=== PATIENT | female | born 1935 | race Caucasian/White ===

== ENCOUNTER 2018-08-24 11:51 | Inpatient (IN) | payer MEDICARE, OTHER ==
[~2018-08-24] VITALS: Ht 165.1 cm; Wt 82.2 kg
[~2018-08-24 11:51] MED LIST: ACET-2119 PO; ALBU18HF2 INH; ATOR10TA70 PO; BACL10TA PO; CETI10TA15 PO; DOCU100C41 PO; FLUT16SP26 BOTHNARES; IPRA3AMP31 NEB; LEVO75TA7 PO; LORA0.5T PO; METO-395 PO; MONT10TA24 PO; MULT-342 PO; POLY119P2 PO; RANI150C4 PO; VENL-191 PO; [UNRECOGNIZED DRUG - CODE] PO
[2018-08-24] MEDS ORDERED: methylPREDNISolone sod succ 125mg/2ml vial IV ONE (12:30)
[2018-08-24] MEDS ORDERED: ipratropium/albuterol 3ml nebule NEB ONE ×2 (12:30→13:40)
[2018-08-24 12:58] LABS: BASOPHILS # (AUTO) 0.1 X10'3 (0-0.2); BASOPHILS % (AUTO) 0.8 % (0-1); EOSINOPHILS # (AUTO) 0.9 X10'3 (0-0.9); EOSINOPHILS % (AUTO) 8.2 % (0-6); HEMATOCRIT 41.5 % (35.0-45.0); HEMOGLOBIN 13.8 g/dl (12.0-16.0); LYMPHOCYTES # (AUTO) 2.3 X10'3 (1.1-4.8); LYMPHOCYTES % (AUTO) 21.4 % (21-51); MEAN CORPUSCULAR HEMOGLOBIN 29.1 PG (27.0-31.0); MEAN CORPUSCULAR HGB CONC 33.2 g/dL (33.0-36.5); MEAN CORPUSCULAR VOLUME 87.7 FL (78-98); MONOCYTES # (AUTO) 1.3 X10'3 (0-0.9); MONOCYTES % (AUTO) 11.9 % (2-12); NEUTROPHILS # (AUTO) 6.3 X10'3 (1.8-7.7); NEUTROPHILS % (AUTO) 57.7 % (42-75); PLATELET COUNT 246 X10'3 (140-440); RED BLOOD COUNT 4.73 X10'6 (4.20-5.60); RED CELL DISTRIBUTION WIDTH 14.6 % (11.5-14.5); WHITE BLOOD COUNT 10.9 X10'3 (4.5-11.0)
[2018-08-24 13:17] LABS: ALANINE AMINOTRANSFERASE 31 U/L (12-78); ALBUMIN 3.6 G/DL (3.4-5.0); ALKALINE PHOSPHATASE 84 IU/L (46-116); ANION GAP 8 (8-16); ASPARTATE AMINO TRANSFERASE 17 U/L (10-37); BILIRUBIN,TOTAL 0.6 MG/DL (0.1-1.0); BLOOD UREA NITROGEN 19 MG/DL (7-18); BUN/CREATININE RATIO 21.8 (6.6-38.0); CALCIUM 9.2 MG/DL (8.5-10.1); CHLORIDE 107 MMOL/L (99-107); CREATININE 0.87 MG/DL (0.40-0.90); GLUCOSE 101 MG/DL (70-104); POTASSIUM 4.2 MMOL/L (3.5-5.1); SODIUM 139 MMOL/L (135-145); TOTAL CARBON DIOXIDE 23.8 MMOL/L (24-32); TOTAL PROTEIN 7.1 G/DL (6.4-8.2); eGFR 62 ML/MIN
[2018-08-24 13:20] LABS: ABG BASE EXCESS -3.5 mmol/L (-2.0-3.0); ABG HCO3 18.5 mmol/L (22.0-26.0); ABG OXYGEN SATURATION 98.2 % (95-98); ABG PCO2 (T) 26.3 mmHg (32.0-45.0); ABG PH (T) 7.466 (7.350-7.450); ABG PO2 (T) 120.2 mmHg (83-108); FCOHb 0.5 % (0.5-1.5); FLOW 2 L/min; FMetHb 0.1 % (0.3-1.12); FO2Hb 97.6 % (94-100); TOTAL HEMOGLOBIN 14.5 G/dl (12.0-16.0)
[2018-08-24 13:21] LABS: MAGNESIUM 1.2 MG/DL (1.5-2.4)
[2018-08-24 13:23] LABS: PARTIAL THROMBOPLASTIN TIME 26 SECONDS (22-32)
--- NOTE | 2018-08-24 14:42 | NUR ---
ATTEMPTED TO AMBULATE PT WITH FWW AND PORTABLE 02 TO BATHROOM, PT C/O FEELING DIZZY AND SOB. UNABLE TO MAKE IT TO BATHROOM, NOTIFIED . PT WAS PLACED ON BED NARAYANAN BY MANAGEMENT LEAD TO COLLECT UA, PT UNABLE TO VOID AT THIS TIME.
[2018-08-24 16:15] LABS: CLARITY,URINE CLEAR (Clear); COLOR,URINE YELLOW (Yellow); GLUCOSE, URINE NEGATIVE (Neg); KETONES,URINE NEGATIVE (Neg); LEUKOCYTE ESTERASE ,URINE NEGATIVE (Neg); NITRITES, URINE NEGATIVE (Neg); OCCULT BLOOD,URINE NEGATIVE (Neg); PH,URINE 5.5 (4.8-8.0); PROTEIN,URINE NEGATIVE (Neg); UROBILINOGEN,URINE 0.2 E.U/dL (0.2-1.0)
[2018-08-24 16:16] LABS: UA COLLECTION TYPE STRAIGHT CATH
[2018-08-24] MEDS ORDERED: FLUT12AE4 PO (17:18)
[2018-08-24] MEDS ORDERED: GUAI600T45 PO (17:18)
[2018-08-24] MEDS ORDERED: CITA10TA9 PO (17:18)
[2018-08-24] MEDS ORDERED: CHOL2000 PO (17:18)
[2018-08-24] MEDS ORDERED: TRIAMCINOLONE 0.1% TOP (17:18)
[2018-08-24] MEDS ORDERED: SIME125C88 PO (17:18)
[2018-08-24] MEDS ORDERED: LOPE2CAP PO (17:18)
[2018-08-24] MEDS ORDERED: TIOT18CA3 PO (17:18)
[2018-08-24] MEDS ORDERED: acetaminophen 325mg tablet PO PRN ×3 (17:50→17:55)
[2018-08-24] MEDS ORDERED: cetirizine 10mg tablet PO PRN (17:50)
[2018-08-24] MEDS ORDERED: baclofen 10mg tablet PO PRN (17:50)
[2018-08-24] MEDS ORDERED: TRIAMCINOLONE 0.1% TOP PRN (17:50)
[2018-08-24] MEDS ORDERED: loperamide 2mg capsule PO PRN (17:50)
[2018-08-24] MEDS ORDERED: LORazepam 0.5 MG tablet PO PRN (17:50)
[2018-08-24] MEDS ORDERED: magnesium 2GM in 50ml NS 50 ML IV PRN (17:55)
[2018-08-24] MEDS ORDERED: acetaminophen 650mg rectal suppository RC PRN (17:55)
[2018-08-24] MEDS: K and/or MAG REPLACEMENT MC SCH (17:55)
[2018-08-24] MEDS ORDERED: magnesium 4gm in 100ml NS 100 ML IV PRN (17:55)
[2018-08-24] MEDS ORDERED: morphine 2 MG/ML inj. syringe IV PRN ×2 (17:55)
[2018-08-24] MEDS ORDERED: magnesium hydroxide 30ml (MOM) UD suspension PO PRN (17:55)
[2018-08-24] MEDS ORDERED: diphenhydrAMINE 25mg capsule PO PRN (17:55)
[2018-08-24] MEDS ORDERED: potassium CL 10mEq/100ml bag 100 ML IV PRN (17:55)
[2018-08-24] MEDS ORDERED: potassium Cl 20 mEq SR tablet PO PRN ×2 (17:55)
[2018-08-24] MEDS ORDERED: HYDROcodone/acetaminophen 5mg/325mg tablet PO PRN (17:55)
[2018-08-24] MEDS ORDERED: ondansetron/PF 4mg/2ml inj IV PRN (17:55)
[2018-08-24] MEDS ORDERED: mag hydrox/Alum hydrox/simeth 30ml oral suspension PO PRN (17:55)
[2018-08-24] MEDS ORDERED: potassium Cl 40MEQ/NS 500ml 500 ML IV PRN (17:55)
[2018-08-24] MEDS ORDERED: triamcinolone acet 0.1% cream 15gm TP PRN (18:00)
[2018-08-24 18:46] LABS: HEMOGLOBIN A1C 6.5 % (4.5-6.2)
[2018-08-24] MEDS ORDERED: ipratropium/albuterol 3ml nebule NEB SCH (19:00)
[2018-08-24] MEDS ORDERED: ipratropium/albuterol 3ml nebule NEB PRN (19:00)
[2018-08-24] MEDS: magnesium Cl slow-release 64mg tablet PO PRN (19:26)
[2018-08-24] MEDS: normal saline 1000ml 1,000 ML IV SCH (19:30)
[2018-08-24] MEDS: famotidine 20mg tablet PO SCH (19:31)
[2018-08-24] MEDS: methylPREDNISolone sod succ 125mg/2ml vial IV SCH (19:31)
[2018-08-24] MEDS: heparin, porcine 5000 units/ml vial SQ SCH (19:42)
[2018-08-24] MEDS ORDERED: non-formulary drug (Ranitidine HCl 2 CAP) PO SCH (20:00)
[2018-08-24] MEDS ORDERED: SALMETEROL PO SCH (20:00)
[2018-08-24] MEDS ORDERED: FLUTICASONE PO SCH (20:00)
--- NOTE | 2018-08-24 20:00 | NUR ---
Patient in room . I have received report from Jan and had the opportunity to ask questions and assume patient care.
[2018-08-24 20:15] VITALS: BP 135/90
--- NOTE | 2018-08-24 20:15 | NUR ---
Received patient from ED. Patient was stable, but anxious after transferring to the bed. Patient is on O2, tele, and arrived with daughter.
[2018-08-24] MEDS: albuterol 2.5 MG/3 ML nebule NEB SCH (20:19)
[2018-08-24] MEDS: ipratropium 0.5 MG/2.5ML nebule IH SCH (20:19)
[2018-08-24] MEDS: budesonide 0.5mg/2ml UD nebule IH SCH (20:19)
[2018-08-24] MEDS: montelukast 10mg tablet PO SCH (21:54)
[2018-08-24] MEDS: SIMETHICONE 125 MG CAPSULE PO SCH (21:54)
[2018-08-24] MEDS: atorvastatin 10mg tablet PO SCH (21:54)
[2018-08-24] MEDS: metoprolol succinate 25mg (24-HOUR) SR. Tablet PO SCH (21:55)
[2018-08-24 22:00] VITALS: BP 157/67
[2018-08-24 22:04] LABS: CLARITY,URINE CLEAR (Clear); COLOR,URINE YELLOW (Yellow); GLUCOSE, URINE NEGATIVE (Neg); KETONES,URINE TRACE mg/dl (Neg); LEUKOCYTE ESTERASE ,URINE NEGATIVE (Neg); NITRITES, URINE NEGATIVE (Neg); OCCULT BLOOD,URINE TRACE-INTACT (Neg); PH,URINE 5.5 (4.8-8.0); PROTEIN,URINE NEGATIVE (Neg); UROBILINOGEN,URINE 0.2 E.U/dL (0.2-1.0)
[2018-08-24 22:05] LABS: UA COLLECTION TYPE CLN CATCH MIDSTREAM
[2018-08-24 22:20] LABS: BACTERIA,URINE FEW /HPF (Neg); MUCUS STRANDS MODERATE /LPF (Neg); RBC,URINE 0-2 /HPF (0-2); SQUAMOUS EPITHELIAL CELL,UR FEW /LPF (FEW); WBC,URINE 0-4 /HPF (0-4)
[2018-08-24 22:21] LABS: HYALINE CASTS 0-3 /LPF (NEGATIVE)
[2018-08-25] VITALS (8 sets, daily range): BP systolic 109–140; BP diastolic 51–71
[2018-08-25 01:12] LABS: ALANINE AMINOTRANSFERASE 29 U/L (12-78); ALBUMIN 3.3 G/DL (3.4-5.0); ALKALINE PHOSPHATASE 74 IU/L (46-116); ANION GAP 10 (8-16); ASPARTATE AMINO TRANSFERASE 14 U/L (10-37); BILIRUBIN,TOTAL 0.3 MG/DL (0.1-1.0); BLOOD UREA NITROGEN 20 MG/DL (7-18); CALCIUM 8.6 MG/DL (8.5-10.1); CHLORIDE 104 MMOL/L (99-107); CREATININE 1.11 MG/DL (0.40-0.90); GLUCOSE 253 MG/DL (70-104); SODIUM 135 MMOL/L (135-145); TOTAL PROTEIN 6.6 G/DL (6.4-8.2); eGFR 47 ML/MIN
[2018-08-25 01:15] LABS: CHOL/HDL RATIO 3.5 (0.00-4.99); CHOLESTEROL 180 MG/DL (0-200); HDL CHOLESTEROL 52 MG/DL (35-60); LDL CHOLESTEROL 111 MG/DL (50-100); MAGNESIUM 1.1 MG/DL (1.5-2.4); PHOSPHORUS 3.2 MG/DL (2.3-4.5); TRIGLYCERIDES 62 MG/DL (20-135)
[2018-08-25] MEDS: methylPREDNISolone sod succ 125mg/2ml vial IV SCH ×4 (01:15→19:53)
[2018-08-25] MEDS: ipratropium 0.5 MG/2.5ML nebule IH SCH ×4 (02:34→20:32)
--- NOTE | 2018-08-25 06:18 | NUR ---
Problems reprioritized. Patient report given, questions answered & plan of care reviewed with Gabi.
--- NOTE | 2018-08-25 06:30 | NUR ---
Patient in room PCU 3024. I have received report from Sang VENTURA and had the opportunity to ask questions and assume patient care.
[2018-08-25 07:10] LABS: BASOPHILS % (AUTO) 0.1 % (0-1); EOSINOPHILS % (AUTO) 0 % (0-6); HEMOGLOBIN 12.5 g/dl (12.0-16.0); LYMPHOCYTES # (AUTO) 0.6 X10'3 (1.1-4.8); LYMPHOCYTES % (AUTO) 8.9 % (21-51); MEAN CORPUSCULAR HEMOGLOBIN 29.4 PG (27.0-31.0); NEUTROPHILS # (AUTO) 6.1 X10'3 (1.8-7.7)
[2018-08-25 07:12] LABS: HEMATOCRIT 37.9 % (35.0-45.0); MEAN CORPUSCULAR HGB CONC 33.1 g/dL (33.0-36.5); MEAN CORPUSCULAR VOLUME 88.8 FL (78-98); MEAN PLATELET VOLUME 10.4 FL (7.4-10.4); MONOCYTES # (AUTO) 0.1 X10'3 (0-0.9); MONOCYTES % (AUTO) 1.9 % (2-12); NEUTROPHILS % (AUTO) 89.1 % (42-75); PLATELET COUNT 204 X10'3 (140-440); RED BLOOD COUNT 4.26 X10'6 (4.20-5.60); RED CELL DISTRIBUTION WIDTH 14.2 % (11.5-14.5); WHITE BLOOD COUNT 6.9 X10'3 (4.5-11.0)
[2018-08-25 07:58] LABS: LARGE PLATELETS FEW; PLATELET ESTIMATE NORMAL
[2018-08-25] MEDS: albuterol 2.5 MG/3 ML nebule NEB SCH ×4 (08:00→20:31)
[2018-08-25] MEDS ORDERED: MULTIVITAMINS PO SCH (08:00)
[2018-08-25] MEDS: K and/or MAG REPLACEMENT MC SCH (08:00)
[2018-08-25] MEDS ORDERED: non-formulary drug (Cholecalciferol (Vitamin D3) (Vitamin D) 1 CAP) PO SCH (08:00)
[2018-08-25] MEDS ORDERED: non-formulary drug (Tiotropium Bromide (Spiriva) 1 PUFF) PO SCH (08:00)
[2018-08-25] MEDS: budesonide 0.5mg/2ml UD nebule IH SCH ×2 (08:00→20:31)
--- NOTE | 2018-08-25 08:23 | NUR ---
Page to Echo: [id number] pt Wang has an active order for Echo. Thank you.
[2018-08-25] MEDS ORDERED: magnesium Cl slow-release 64mg tablet PO PRN (08:55)
[2018-08-25] MEDS: SIMETHICONE 125 MG CAPSULE PO SCH ×2 (09:10→19:53)
[2018-08-25] MEDS: famotidine 20mg tablet PO SCH ×2 (09:11→19:53)
[2018-08-25] MEDS: guaiFENesin ER 600mg tablet PO SCH (09:12)
[2018-08-25] MEDS: CITALOpram 10mg tablet PO SCH (09:13)
[2018-08-25] MEDS: levoTHYROXINE 75mcg tablet PO SCH (09:14)
[2018-08-25] MEDS: heparin, porcine 5000 units/ml vial SQ SCH ×2 (09:14→19:54)
[2018-08-25] MEDS: vitamin D (cholecalciferol) 1,000 unit tablet PO SCH (09:15)
[2018-08-25] MEDS: multivitamins, therapeutics tablet PO SCH (09:23)
--- NOTE | 2018-08-25 10:51 | NUR ---
Page: [id number] jemma Piña has active order for VL Carotid. Thank you.
[2018-08-25] MEDS: magnesium Cl slow-release 64mg tablet PO PRN ×2 (11:06→19:59)
[2018-08-25] MEDS: normal saline 1000ml 1,000 ML IV SCH (13:52)
--- NOTE | 2018-08-25 15:26 | NUR ---
PAGER ID: [phone] MESSAGE: [id number] pt Wang is eating and drinking okay. Do you still want the NS @ 50 ml/hr? Thank you - Gabi [phone]
--- NOTE | 2018-08-25 18:28 | NUR ---
Orientee documentation: I have reviewed and agree with interventions, assessments performed and documented by AUDREY Jang. For this medication-pass time frame, medications were reviewed, dispensed, administered and documented per hospital policy by AUDREY Jang.
--- NOTE | 2018-08-25 18:29 | NUR ---
Problems reprioritized. Patient report given, questions answered & plan of care reviewed with AUDREY Huang.
--- NOTE | 2018-08-25 18:55 | NUR ---
Patient in room PCU 3024. I have received report from Gabi VENTURA and had the opportunity to ask questions and assume patient care.
[2018-08-25] MEDS: hydrocortisone 1% cream 28gm TP SCH (19:55)
[2018-08-25] MEDS: HYDROcodone/acetaminophen 10/325mg tab PO PRN (19:57)
[2018-08-25] MEDS: metoprolol succinate 25mg (24-HOUR) SR. Tablet PO SCH (22:21)
[2018-08-25] MEDS: montelukast 10mg tablet PO SCH (22:22)
[2018-08-25] MEDS: atorvastatin 10mg tablet PO SCH (22:22)
[2018-08-26 02:00] VITALS: BP 131/61
[2018-08-26] MEDS: methylPREDNISolone sod succ 125mg/2ml vial IV SCH ×2 (02:11→07:45)
[2018-08-26] MEDS: HYDROcodone/acetaminophen 10/325mg tab PO PRN (02:12)
[2018-08-26] MEDS: ipratropium 0.5 MG/2.5ML nebule IH SCH ×2 (03:00→08:19)
[2018-08-26 05:29] LABS: BASOPHILS % (AUTO) 0 % (0-1); EOSINOPHILS % (AUTO) 0 % (0-6); HEMATOCRIT 38.3 % (35.0-45.0); HEMOGLOBIN 13.1 g/dl (12.0-16.0); LYMPHOCYTES # (AUTO) 0.7 X10'3 (1.1-4.8); MEAN CORPUSCULAR HEMOGLOBIN 30.1 PG (27.0-31.0); MEAN CORPUSCULAR HGB CONC 34.2 g/dL (33.0-36.5); MEAN CORPUSCULAR VOLUME 88.2 FL (78-98); MEAN PLATELET VOLUME 10.5 FL (7.4-10.4); MONOCYTES # (AUTO) 0.3 X10'3 (0-0.9); MONOCYTES % (AUTO) 2.1 % (2-12); NEUTROPHILS # (AUTO) 13.9 X10'3 (1.8-7.7); NEUTROPHILS % (AUTO) 92.9 % (42-75); PLATELET COUNT 208 X10'3 (140-440); RED BLOOD COUNT 4.34 X10'6 (4.20-5.60); RED CELL DISTRIBUTION WIDTH 14.7 % (11.5-14.5)
[2018-08-26 06:02] LABS: ALANINE AMINOTRANSFERASE 26 U/L (12-78); ALBUMIN 3.5 G/DL (3.4-5.0); ALKALINE PHOSPHATASE 82 IU/L (46-116); ANION GAP 10 (8-16); ASPARTATE AMINO TRANSFERASE 13 U/L (10-37); BILIRUBIN,TOTAL 0.3 MG/DL (0.1-1.0); BLOOD UREA NITROGEN 31 MG/DL (7-18); BUN/CREATININE RATIO 32.6 (6.6-38.0); CHLORIDE 105 MMOL/L (99-107); CREATININE 0.95 MG/DL (0.40-0.90); GLUCOSE 213 MG/DL (70-104); MAGNESIUM 1.7 MG/DL (1.5-2.4); POTASSIUM 4.4 MMOL/L (3.5-5.1); SODIUM 137 MMOL/L (135-145); TOTAL CARBON DIOXIDE 21.6 MMOL/L (24-32); eGFR 56 ML/MIN
--- NOTE | 2018-08-26 06:29 | NUR ---
Patient in room PCU 3024. I have received report from Karina VENTURA and had the opportunity to ask questions and assume patient care.
--- NOTE | 2018-08-26 06:47 | NUR ---
Problems reprioritized. Patient report given, questions answered & plan of care reviewed with Leticia VENTURA.
[2018-08-26 06:51] VITALS: BP 106/46
[2018-08-26] MEDS: multivitamins, therapeutics tablet PO SCH (07:44)
[2018-08-26] MEDS: guaiFENesin ER 600mg tablet PO SCH (07:44)
[2018-08-26] MEDS: famotidine 20mg tablet PO SCH (07:44)
[2018-08-26] MEDS: CITALOpram 10mg tablet PO SCH (07:44)
[2018-08-26] MEDS: levoTHYROXINE 75mcg tablet PO SCH (07:44)
[2018-08-26] MEDS: vitamin D (cholecalciferol) 1,000 unit tablet PO SCH (07:45)
[2018-08-26] MEDS: heparin, porcine 5000 units/ml vial SQ SCH (07:45)
[2018-08-26] MEDS: K and/or MAG REPLACEMENT MC SCH (07:46)
[2018-08-26] MEDS: SIMETHICONE 125 MG CAPSULE PO SCH (07:49)
[2018-08-26] MEDS: hydrocortisone 1% cream 28gm TP SCH (07:50)
--- NOTE | 2018-08-26 08:08 | NUR ---
PAGED RT, "PLEASE COME BRING BREATHING TX RIGHT AWAY TO ROOM 3024 B, PATIENT IS WHEEZING AND HAVING A DIFFICULT TIME BREATHING! THANK YOU."
[2018-08-26] MEDS: albuterol 2.5 MG/3 ML nebule NEB SCH (08:18)
[2018-08-26] MEDS: budesonide 0.5mg/2ml UD nebule IH SCH (08:18)
--- NOTE | 2018-08-26 08:19 | NUR ---
RT ARRIVED AT THIS TIME TO PERFORM RT TX.
[2018-08-26] MEDS ORDERED: PRED10TA23 PO (08:44)
[2018-08-26] MEDS ORDERED: AZIT500T PO (08:46)
[2018-08-26 09:35] VITALS: BP_SYST 113; BP_SYST 118; BP_DIAS 81; BP_DIAS 98
--- NOTE | 2018-08-26 10:48 | NUR ---
Patient discharged at this time via W/C per [facility] staff per private vehicle without event. Eager to back to daughters home in [place], [place] where she is visiting from [place]. IV removed, cathlon intact. Tele dc'd. Belongings sent with patient. Meds called into [facility] in [place], [place]. Discharge instructions discussed and questions answered, did inform the patient of the following things needing addressed in follow-up appointment: check for high blood glucose/diabetes A1C 6.5 and whether carotid occlusion needs addressed or not, and to find a physician [place]. Daughter states she will call first thing Justine to [facility] for a follow-up appointment.
== END 2018-08-26 10:48 | disposition home or self-care (01) | DRG 192 ==
LOC: ER 11:53 → PCU 3S 20:18
PROVIDERS: ADMIT Family Medicine; ATTEND Internal Medicine
DX: J44.1 Chronic obstructive pulmonary disease with (acute) exacerbation (principal); E03.9 Hypothyroidism, unspecified; E78.00 Pure hypercholesterolemia, unspecified; E78.5 Hyperlipidemia, unspecified; F41.0 Panic disorder [episodic paroxysmal anxiety]; F41.1 Generalized anxiety disorder; G47.33 Obstructive sleep apnea (adult) (pediatric); I10 Essential (primary) hypertension; I25.10 Atherosclerotic heart disease of native coronary artery without angina pectoris; Z96.652 Presence of left artificial knee joint; I48.91 Unspecified atrial fibrillation; I65.21 Occlusion and stenosis of right carotid artery; R06.4 Hyperventilation; F32.9 Major depressive disorder, single episode, unspecified; K52.9 Noninfective gastroenteritis and colitis, unspecified; Z77.22 Contact with and (suspected) exposure to environmental tobacco smoke (acute) (chronic); Z79.890 Hormone replacement therapy; Z85.3 Personal history of malignant neoplasm of breast; Z90.710 Acquired absence of both cervix and uterus; Z99.81 Dependence on supplemental oxygen; Z88.6 Allergy status to analgesic agent; Z88.1 Allergy status to other antibiotic agents; Z88.2 Allergy status to sulfonamides; Z88.8 Allergy status to other drugs, medicaments and biological substances
CPT/HCPCS: 36415; 36600; 70450; 71045; 80053; 80061; 81001; 81003; 82803; 83036; 83605; 83735; 83880; 84100; 84443; 84484; 85018; 85025; 85610; 85730; 87040; 87070; 93005; 93306; 93880; 94640; 94760; 96374; 97116; 97161; 97530; 99285; G0378; J1644; J2930; J7030; J7626; Q0163

== ENCOUNTER 2018-11-05 04:11 | Inpatient (IN) | payer MEDICARE, OTHER ==
[~2018-11-05] VITALS: Ht 165.1 cm; Wt 82.4 kg
[~2018-11-05 04:11] MED LIST changes: +CHOL2000 PO; +CITA10TA9 PO; -DOCU100C41 PO; +FLUT12AE4 PO; +GUAI600T45 PO; +LOPE2CAP PO; -POLY119P2 PO; +SIME125C88 PO; +TIOT18CA3 PO; +TRIAMCINOLONE 0.1% TOP; -VENL-191 PO; -[UNRECOGNIZED DRUG - CODE] PO
[2018-11-05] MEDS ORDERED: ondansetron/PF 4mg/2ml inj IV ONE (04:25)
[2018-11-05] MEDS ORDERED: normal saline 1000ML IV soln IVB ONE (04:25)
--- NOTE | 2018-11-05 04:46 | NUR ---
during iv start, pt screamed loud enough to "vagal" herself and pull away from the iv. pulse was strong and steady throughout the incident. when i told pt to wake up now, she immediately woke up. during second iv poke, pt did not "pass out" but screamed equally as loud.
[2018-11-05] MEDS: morphine 4 MG/ML inj SYRINge IV PRN ×2 (04:50→06:38)
[2018-11-05 04:55] LABS: EOSINOPHILS % (AUTO) 0 % (0-6); MEAN PLATELET VOLUME 10.1 FL (7.4-10.4)
[2018-11-05 04:56] LABS: BASOPHILS % (AUTO) 0.2 % (0-1); HEMATOCRIT 39.5 % (35.0-45.0); LYMPHOCYTES % (AUTO) 14.4 % (21-51); MEAN CORPUSCULAR HEMOGLOBIN 29.3 PG (27.0-31.0); MEAN CORPUSCULAR HGB CONC 32.9 g/dL (33.0-36.5); MEAN CORPUSCULAR VOLUME 88.8 FL (78-98); MONOCYTES # (AUTO) 1.2 X10'3 (0-0.9); MONOCYTES % (AUTO) 8.6 % (2-12); NEUTROPHILS # (AUTO) 10.7 X10'3 (1.8-7.7); NEUTROPHILS % (AUTO) 76.8 % (42-75); PLATELET COUNT 272 X10'3 (140-440); RED BLOOD COUNT 4.44 X10'6 (4.20-5.60); RED CELL DISTRIBUTION WIDTH 13.7 % (11.5-14.5); WHITE BLOOD COUNT 13.9 X10'3 (4.5-11.0)
[2018-11-05 05:09] LABS: ALANINE AMINOTRANSFERASE 52 U/L (12-78); ALBUMIN 3.7 G/DL (3.4-5.0); ALBUMIN/GLOBULIN RATIO 1.2 (1.1-1.5); ALKALINE PHOSPHATASE 75 IU/L (46-116); ANION GAP 8 (8-16); ASPARTATE AMINO TRANSFERASE 17 U/L (10-37); BILIRUBIN,TOTAL 0.6 MG/DL (0.1-1.0); BLOOD UREA NITROGEN 41 MG/DL (7-18); BUN/CREATININE RATIO 37.3 (6.6-38.0); CHLORIDE 107 MMOL/L (99-107); GLUCOSE 130 MG/DL (70-104); POTASSIUM 4.6 MMOL/L (3.5-5.1); SODIUM 139 MMOL/L (135-145); TOTAL CARBON DIOXIDE 24.5 MMOL/L (24-32); TOTAL PROTEIN 6.7 G/DL (6.4-8.2); eGFR 47 ML/MIN
[2018-11-05] MEDS ORDERED: iohexol 350MG/ML 100ml bottle IV ONE (05:12)
[2018-11-05 05:13] LABS: LIPASE 148 U/L (73-393); TROPONIN I < 0.04 NG/ML (0.0-0.05)
[2018-11-05 05:17] LABS: CLARITY,URINE CLEAR (Clear); COLOR,URINE YELLOW (Yellow); GLUCOSE, URINE NEGATIVE (Neg); KETONES,URINE NEGATIVE (Neg); LEUKOCYTE ESTERASE ,URINE NEGATIVE (Neg); NITRITES, URINE NEGATIVE (Neg); OCCULT BLOOD,URINE NEGATIVE (Neg); PH,URINE 5.5 (4.8-8.0); PROTEIN,URINE NEGATIVE (Neg); UROBILINOGEN,URINE 0.2 E.U/dL (0.2-1.0)
[2018-11-05 05:21] LABS: UA COLLECTION TYPE STRAIGHT CATH
--- NOTE | 2018-11-05 05:21 | NUR ---
TO CT SCAN
[2018-11-05] MEDS: MESSAGE TO NURSING PO NR ×2 (05:50→10:24)
--- NOTE | 2018-11-05 05:55 | NUR ---
PATIENT WAS DISCHARGED YESTERDAY FROM [facility] IN [place]. FALL RISK BAND PLACED: MORPHINE GIVEN.
--- NOTE | 2018-11-05 06:19 | NUR ---
Assumed care of patient. Patient resting in bed comfortable, daughter at bedside. No needs at this time.
[2018-11-05] MEDS ORDERED: PRED5TAB PO (07:29)
[2018-11-05] MEDS ORDERED: GUAI600T45 PO (07:29)
[2018-11-05] MEDS ORDERED: DOXY100C2 PO (07:29)
[2018-11-05] MEDS ORDERED: MAGN400C PO (07:29)
[2018-11-05] MEDS ORDERED: LACTC PO (07:29)
[2018-11-05] MEDS ORDERED: METF-436 PO (07:29)
--- NOTE | 2018-11-05 07:41 | NUR ---
DAUGHTER NUMBER: [place]: [phone]
--- NOTE | 2018-11-05 09:30 | NUR ---
Patient in room [facility] 358. I have received report from Javier VENTURA and had the opportunity to ask questions and assume patient care.
[2018-11-05 09:49] VITALS: BP 139/82
[2018-11-05] MEDS ORDERED: ondansetron/PF 4mg/2ml inj IV PRN ×2 (10:05→10:45)
[2018-11-05] MEDS ORDERED: morphine 2 MG/ML inj. syringe IV PRN ×3 (10:05→10:45)
[2018-11-05] MEDS ORDERED: ipratropium/albuterol 3ml nebule NEB PRN ×2 (10:40→14:10)
[2018-11-05] MEDS ORDERED: albuterol 2.5 MG/3 ML nebule NEB PRN (10:40)
[2018-11-05] MEDS ORDERED: baclofen 10mg tablet PO PRN (10:40)
[2018-11-05] MEDS: normal saline 1000ml 1,000 ML IV SCH ×2 (10:43→23:12)
[2018-11-05] MEDS ORDERED: dextrose 50%-water 50ml dispensing syringe IV PRN ×4 (10:45→15:35)
[2018-11-05] MEDS ORDERED: diphenhydrAMINE 50 mg/ml inj IV PRN (10:45)
[2018-11-05] MEDS ORDERED: metoclopramide 5 mg/ml inj IV PRN (10:45)
[2018-11-05] MEDS ORDERED: HYDROcodone/acetaminophen 5mg/325mg tablet PO PRN (10:45)
[2018-11-05] MEDS ORDERED: glucagon, human recombinant 1mg kit SUBCUT PRN ×2 (10:45→15:35)
[2018-11-05] MEDS ORDERED: acetaminophen 325mg tablet PO PRN ×2 (10:45)
[2018-11-05] MEDS ORDERED: magnesium 4gm in 100ml NS 100 ML IV PRN (10:45)
[2018-11-05] MEDS ORDERED: potassium CL 10mEq/100ml bag 100 ML IV PRN ×2 (10:45)
[2018-11-05] MEDS ORDERED: insulin Lispro (HumaLOG) vial - multi-dose SQ SCH ×2 (10:45→15:35)
[2018-11-05] MEDS ORDERED: HYDROcodone/acetaminophen 10/325mg tab PO PRN (10:45)
[2018-11-05] MEDS ORDERED: MESSAGE TO PHARMACY PO ONE ×2 (10:45→15:35)
[2018-11-05] MEDS ORDERED: magnesium 2GM in 50ml NS 50 ML IV PRN (10:45)
[2018-11-05] MEDS ORDERED: dextrose ORAL solution 15 GM/59 ML bottle PO PRN ×4 (10:45→15:35)
[2018-11-05] MEDS ORDERED: magnesium hydroxide 30ml (MOM) UD suspension PO PRN (10:45)
[2018-11-05] MEDS ORDERED: magnesium Cl slow-release 64mg tablet PO PRN (10:45)
[2018-11-05] MEDS ORDERED: potassium Cl 20 mEq SR tablet PO PRN ×2 (10:45)
[2018-11-05] MEDS: K and/or MAG REPLACEMENT MC SCH (10:45)
[2018-11-05] MEDS ORDERED: bisacodyl 10mg suppository rectal RC PRN (10:45)
[2018-11-05] MEDS ORDERED: diphenhydrAMINE 25mg capsule PO PRN (10:45)
[2018-11-05] MEDS ORDERED: mag hydrox/Alum hydrox/simeth 30ml oral suspension PO PRN (10:45)
[2018-11-05] MEDS ORDERED: acetaminophen 650mg rectal suppository RC PRN (10:45)
[2018-11-05 11:00] VITALS: BP 114/72
[2018-11-05 11:13] LABS: HEMOGLOBIN A1C 6.7 % (4.5-6.2)
[2018-11-05] MEDS ORDERED: albuterol 2.5 MG/3 ML nebule NEB SCH (14:00)
[2018-11-05] MEDS ORDERED: ipratropium 0.5 MG/2.5ML nebule IH SCH (14:00)
[2018-11-05] MEDS ORDERED: methylPREDNISolone sod succ 125mg/2ml vial IV ONE (15:10)
--- NOTE | 2018-11-05 16:16 | NUR ---
Spoke with Dr. Cox about patient order for NG Tube placement. Notified physician patient has had recent sinus surgery. Physician stated we still needing the NG tube and use for a smaller size tube would be okay.
[2018-11-05] MEDS: CefTRIAXone/D5W-Rocephin 1gm 50 ML IV SCH (16:39)
[2018-11-05] MEDS: metroNIDAZOLE-Flagyl 500mg/NS 100 ML IV SCH ×2 (17:18→23:12)
[2018-11-05] MEDS: SIMETHICONE 125 MG CAPSULE PO SCH (17:35)
--- NOTE | 2018-11-05 18:30 | NUR ---
Patient in room [facility]AY[facility] 358. I have received report from Anamaria VENTURA and had the opportunity to ask questions and assume patient care.
--- NOTE | 2018-11-05 18:30 | NUR ---
Received report from Jan VENTURA, assumed care of patient with Anamaria VENTURA.
[2018-11-05 20:00] VITALS: BP 135/58
[2018-11-05] MEDS: atorvastatin 10mg tablet PO SCH (20:11)
[2018-11-05] MEDS: docusate sod 100mg capsule PO SCH (20:11)
[2018-11-05] MEDS: montelukast 10mg tablet PO SCH (20:11)
[2018-11-05] MEDS: methylPREDNISolone sod succ 125mg/2ml vial IV SCH (20:12)
[2018-11-05] MEDS: metoprolol succinate 25mg (24-HOUR) SR. Tablet PO SCH (20:12)
[2018-11-05] MEDS: diatr meglu/diatrizoate 30ml oral sol.-(3 dose) bottle PO SCH (20:29)
[2018-11-05] MEDS ORDERED: temazepam 15mg capsule PO PRN (21:00)
[2018-11-05] MEDS ORDERED: insulin glargine (Lantus) pen - multi-dose SQ SCH (21:00)
[2018-11-05] MEDS: insulin glargine (Lantus) pen - multi-dose SQ SCH (21:00)
[2018-11-05] MEDS: budesonide 0.5mg/2ml UD nebule IH SCH (21:12)
[2018-11-05] MEDS: ipratropium/albuterol 3ml nebule NEB SCH (21:12)
[2018-11-06] VITALS: BP 127/68
[2018-11-06] MEDS: methylPREDNISolone sod succ 125mg/2ml vial IV SCH ×4 (01:45→20:42)
[2018-11-06] MEDS: ipratropium/albuterol 3ml nebule NEB SCH ×4 (03:44→20:20)
[2018-11-06 04:52] LABS: BASOPHILS % (AUTO) 0 % (0-1); EOSINOPHILS % (AUTO) 0 % (0-6); HEMOGLOBIN 12.9 g/dl (12.0-16.0); LYMPHOCYTES # (AUTO) 0.8 X10'3 (1.1-4.8); LYMPHOCYTES % (AUTO) 14.4 % (21-51); MEAN CORPUSCULAR HEMOGLOBIN 29.4 PG (27.0-31.0); MEAN CORPUSCULAR VOLUME 89.1 FL (78-98); MEAN PLATELET VOLUME 10.1 FL (7.4-10.4); MONOCYTES # (AUTO) 0.1 X10'3 (0-0.9); NEUTROPHILS % (AUTO) 84.6 % (42-75); PLATELET COUNT 173 X10'3 (140-440); RED BLOOD COUNT 4.38 X10'6 (4.20-5.60); RED CELL DISTRIBUTION WIDTH 13.8 % (11.5-14.5); WHITE BLOOD COUNT 5.9 X10'3 (4.5-11.0)
[2018-11-06 05:17] LABS: ALANINE AMINOTRANSFERASE 145 U/L (12-78); ALBUMIN 3.3 G/DL (3.4-5.0); ALBUMIN/GLOBULIN RATIO 1.1 (1.1-1.5); ALKALINE PHOSPHATASE 66 IU/L (46-116); ANION GAP 7 (8-16); ASPARTATE AMINO TRANSFERASE 41 U/L (10-37); BILIRUBIN,TOTAL 0.5 MG/DL (0.1-1.0); BLOOD UREA NITROGEN 24 MG/DL (7-18); CALCIUM 8.3 MG/DL (8.5-10.1); CHLORIDE 105 MMOL/L (99-107); CHOL/HDL RATIO 2.2 (0.00-4.99); CHOLESTEROL 123 MG/DL (0-200); CREATININE 0.75 MG/DL (0.40-0.90); GLUCOSE 179 MG/DL (70-104); HDL CHOLESTEROL 57 MG/DL (35-60); LDL CHOLESTEROL 50 MG/DL (50-100); MAGNESIUM 1.7 MG/DL (1.5-2.4); PHOSPHORUS 4.3 MG/DL (2.3-4.5); POTASSIUM 4.6 MMOL/L (3.5-5.1); SODIUM 140 MMOL/L (135-145); TOTAL CARBON DIOXIDE 28.2 MMOL/L (24-32); TOTAL PROTEIN 6.2 G/DL (6.4-8.2); TRIGLYCERIDES 114 MG/DL (20-135); eGFR 73 ML/MIN
--- NOTE | 2018-11-06 06:30 | NUR ---
Patient in room [facility]AY[facility] 358. I have received report from Anamaria VENTURA and had the opportunity to ask questions and assume patient care.
--- NOTE | 2018-11-06 06:38 | NUR ---
Problems reprioritized. Patient report given, questions answered & plan of care reviewed with AUDREY Montoya.
[2018-11-06] MEDS: SIMETHICONE 125 MG CAPSULE PO SCH ×2 (07:00→17:38)
[2018-11-06 08:00] VITALS: BP 150/56
[2018-11-06] MEDS: K and/or MAG REPLACEMENT MC SCH (08:00)
[2018-11-06] MEDS ORDERED: predniSONE 5mg tablet PO SCH (08:00)
[2018-11-06] MEDS: budesonide 0.5mg/2ml UD nebule IH SCH ×2 (08:08→20:20)
[2018-11-06] MEDS: docusate sod 100mg capsule PO SCH ×2 (08:12→20:42)
[2018-11-06] MEDS: diatr meglu/diatrizoate 30ml oral sol.-(3 dose) bottle PO SCH ×2 (08:12→11:04)
[2018-11-06] MEDS: lactobacillus rhamnosus 10,000 MMU CELLS/CAPSULE PO SCH (08:14)
[2018-11-06] MEDS: CITALOpram 10mg tablet PO SCH (08:14)
[2018-11-06] MEDS: levoTHYROXINE 75mcg tablet PO SCH (08:14)
[2018-11-06] MEDS: multivitamins, therapeutics tablet PO SCH (08:14)
[2018-11-06] MEDS: CefTRIAXone/D5W-Rocephin 1gm 50 ML IV SCH (08:15)
[2018-11-06] MEDS: famotidine 20mg tablet PO SCH (08:15)
[2018-11-06] MEDS: metroNIDAZOLE-Flagyl 500mg/NS 100 ML IV SCH (08:25)
[2018-11-06] MEDS: MESSAGE TO NURSING PO NR (10:53)
[2018-11-06 11:00] VITALS: BP 149/66
[2018-11-06] MEDS ORDERED: iohexol 300mg/ml 100ml inj. ONE (11:29)
[2018-11-06] MEDS: normal saline 1000ml 1,000 ML IV SCH ×2 (11:51→14:19)
[2018-11-06] MEDS: metroNIDAZOLE 500mg tablet PO SCH ×2 (16:34→22:53)
--- NOTE | 2018-11-06 18:30 | NUR ---
Problems reprioritized. Patient report given, questions answered & plan of care reviewed with Anamaria VENTURA.
[2018-11-06 19:00] VITALS: BP 141/72
[2018-11-06] MEDS: atorvastatin 10mg tablet PO SCH (20:42)
[2018-11-06] MEDS: montelukast 10mg tablet PO SCH (20:42)
[2018-11-06] MEDS: metoprolol succinate 25mg (24-HOUR) SR. Tablet PO SCH (20:43)
[2018-11-06] MEDS: insulin glargine (Lantus) pen - multi-dose SQ SCH (21:00)
[2018-11-07] VITALS: BP 112/66
--- NOTE | 2018-11-07 01:30 | NUR ---
Pt tolerating clears. NG has been clamped since 1800. Removed NG per pt request. Advanced diet per MD orders.
[2018-11-07] MEDS: normal saline 1000ml 1,000 ML IV SCH (02:19)
[2018-11-07] MEDS: methylPREDNISolone sod succ 125mg/2ml vial IV SCH ×2 (02:19→08:58)
[2018-11-07] MEDS: ipratropium/albuterol 3ml nebule NEB SCH ×2 (02:45→10:11)
[2018-11-07 06:06] LABS: BASOPHILS % (AUTO) 0 % (0-1); EOSINOPHILS % (AUTO) 0 % (0-6); HEMOGLOBIN 12.2 g/dl (12.0-16.0); LYMPHOCYTES # (AUTO) 0.5 X10'3 (1.1-4.8); LYMPHOCYTES % (AUTO) 5.9 % (21-51); MEAN CORPUSCULAR HEMOGLOBIN 30.2 PG (27.0-31.0); MEAN CORPUSCULAR HGB CONC 33.9 g/dL (33.0-36.5); MEAN CORPUSCULAR VOLUME 89.1 FL (78-98); MONOCYTES # (AUTO) 0.3 X10'3 (0-0.9); MONOCYTES % (AUTO) 3.6 % (2-12); NEUTROPHILS # (AUTO) 8.3 X10'3 (1.8-7.7); NEUTROPHILS % (AUTO) 90.5 % (42-75); PLATELET COUNT 189 X10'3 (140-440); RED BLOOD COUNT 4.04 X10'6 (4.20-5.60); RED CELL DISTRIBUTION WIDTH 13.8 % (11.5-14.5); WHITE BLOOD COUNT 9.1 X10'3 (4.5-11.0)
[2018-11-07 06:07] LABS: ALANINE AMINOTRANSFERASE 93 U/L (12-78); ALBUMIN/GLOBULIN RATIO 1.2 (1.1-1.5); ALKALINE PHOSPHATASE 57 IU/L (46-116); ANION GAP 8 (8-16); ASPARTATE AMINO TRANSFERASE 12 U/L (10-37); BILIRUBIN,TOTAL 0.5 MG/DL (0.1-1.0); BLOOD UREA NITROGEN 19 MG/DL (7-18); BUN/CREATININE RATIO 23.2 (6.6-38.0); CALCIUM 8.2 MG/DL (8.5-10.1); CHLORIDE 106 MMOL/L (99-107); CREATININE 0.82 MG/DL (0.40-0.90); GLUCOSE 194 MG/DL (70-104); MAGNESIUM 1.9 MG/DL (1.5-2.4); PHOSPHORUS 3.2 MG/DL (2.3-4.5); SODIUM 140 MMOL/L (135-145); TOTAL CARBON DIOXIDE 26.2 MMOL/L (24-32); TOTAL PROTEIN 5.6 G/DL (6.4-8.2); eGFR 66 ML/MIN
--- NOTE | 2018-11-07 06:36 | NUR ---
Problems reprioritized. Patient report given, questions answered & plan of care reviewed with AUDREY Tabares.
[2018-11-07 07:00] VITALS: BP 143/58
[2018-11-07] MEDS: SIMETHICONE 125 MG CAPSULE PO SCH (07:00)
[2018-11-07] MEDS ORDERED: prednisone 10mg tablet PO SCH (08:51)
[2018-11-07] MEDS: multivitamins, therapeutics tablet PO SCH (08:57)
[2018-11-07] MEDS: metroNIDAZOLE 500mg tablet PO SCH (08:57)
[2018-11-07] MEDS: famotidine 20mg tablet PO SCH (08:57)
[2018-11-07] MEDS: CITALOpram 10mg tablet PO SCH (08:57)
[2018-11-07] MEDS: lactobacillus rhamnosus 10,000 MMU CELLS/CAPSULE PO SCH (08:57)
[2018-11-07] MEDS: docusate sod 100mg capsule PO SCH (08:57)
[2018-11-07] MEDS: CefTRIAXone/D5W-Rocephin 1gm 50 ML IV SCH (08:58)
[2018-11-07] MEDS: levoTHYROXINE 75mcg tablet PO SCH (08:58)
[2018-11-07] MEDS: budesonide 0.5mg/2ml UD nebule IH SCH (10:12)
[2018-11-07 11:00] VITALS: BP 120/60
[2018-11-07] MEDS ORDERED: METR500T PO (11:52)
[2018-11-07] MEDS ORDERED: CEFD300C3 PO (11:52)
[2018-11-07] MEDS ORDERED: PRED10TA23 PO (11:59)
--- NOTE | 2018-11-07 12:50 | NUR ---
hospitalist put dc order in but need release from surgeon also. awaiting answer
--- NOTE | 2018-11-07 14:10 | NUR ---
PT HAS BEEN DISCHARGED SINCE 1334. STILL WAITING FOR MEDS FROM [facility]. TECH TO CALL AND SEE WHAT IS TAKING SO LONG
== END 2018-11-07 14:35 | disposition home or self-care (01) | DRG 191 ==
LOC: ER 04:12 → SUR 3N 09:31 → CMPBEDREQ 15:16
PROVIDERS: ADMIT Family Medicine; ATTEND Family Medicine
PROC: B32T1ZZ Computerized Tomography (CT Scan) of Left Pulmonary Artery using Low Osmolar Contrast (ICD-10-PCS; 2018-11-05)
PROC: B3201ZZ Computerized Tomography (CT Scan) of Thoracic Aorta using Low Osmolar Contrast (ICD-10-PCS; 2018-11-05)
PROC: B32S1ZZ Computerized Tomography (CT Scan) of Right Pulmonary Artery using Low Osmolar Contrast (ICD-10-PCS; 2018-11-05)
PROC: 0D9670Z Drainage of Stomach with Drainage Device, Via Natural or Artificial Opening (ICD-10-PCS; 2018-11-05)
PROC: BW211ZZ Computerized Tomography (CT Scan) of Abdomen and Pelvis using Low Osmolar Contrast (ICD-10-PCS; principal; 2018-11-06)
DX: J44.1 Chronic obstructive pulmonary disease with (acute) exacerbation (principal); K56.690 Other partial intestinal obstruction; I48.91 Unspecified atrial fibrillation; E03.9 Hypothyroidism, unspecified; E11.9 Type 2 diabetes mellitus without complications; E78.00 Pure hypercholesterolemia, unspecified; E78.5 Hyperlipidemia, unspecified; F41.0 Panic disorder [episodic paroxysmal anxiety]; I71.9 Aortic aneurysm of unspecified site, without rupture; G47.33 Obstructive sleep apnea (adult) (pediatric); I10 Essential (primary) hypertension; I25.10 Atherosclerotic heart disease of native coronary artery without angina pectoris; K21.9 Gastro-esophageal reflux disease without esophagitis; Z77.22 Contact with and (suspected) exposure to environmental tobacco smoke (acute) (chronic); Z96.652 Presence of left artificial knee joint; F32.9 Major depressive disorder, single episode, unspecified; Z88.1 Allergy status to other antibiotic agents; Z88.6 Allergy status to analgesic agent; Z88.2 Allergy status to sulfonamides; Z88.8 Allergy status to other drugs, medicaments and biological substances; Z79.890 Hormone replacement therapy; Z79.899 Other long term (current) drug therapy; Z82.3 Family history of stroke; Z83.3 Family history of diabetes mellitus; Z85.3 Personal history of malignant neoplasm of breast; Z90.710 Acquired absence of both cervix and uterus; Z99.81 Dependence on supplemental oxygen; Z82.49 Family history of ischemic heart disease and other diseases of the circulatory system
CPT/HCPCS: 36415; 71275; 74174; 74177; 80053; 80061; 81003; 82948; 83036; 83605; 83690; 83735; 84100; 84145; 84443; 84484; 85025; 87040; 87081; 94640; 94760; 96361; 96374; 96375; 96376; 97116; 97161; 97530; 99285; G0378; J0696; J1815; J2270; J2405; J2930; J3490; J7030; J7626; Q0163; Q9963; Q9967